=== PATIENT | male | born 1970 | race Caucasian/White ===

== ENCOUNTER → 2018-05-27 | Outpatient (CLI) | payer OTHER ==
--- NOTE | 2018-06-04 13:14 | PCVCIMAG ---
APPROVED REPORT Patient Location: Echo lab Room #: Stress Nurse: Linette Ramirez RN Treadmill Stress Test Indications- chest pain, dyspnea, HTN, DM The patient exercised according to the [facility] protocol for 9:32 mins; achieving a work level of 11.8 METS. The resting heart rate of 69 bpm christopher to a maximum heart rate of 139 bpm. This value represent 81% of the maximal, age-predicted heart rate. The resting blood pressure of 136/80 mmHg, christopher to a maximum blood pressure of 174/86 mmHg. The exercise test was stopped due to right hip pain and fatigue. No symptoms of chest pain. Conclusion #1 patient exercised 932 [place] protocol subsegment any fatigue shortness of breath no production of chest pain or angina #2 no diagnostic EKG changes were noted no significant ectopy. #3 fair exercise tolerance with an appropriate hemodynamic response Indications and plan: Continue aggressive risk factor modification there is no indication of an ischemic response.
== END | disposition home or self-care (01) ==
LOC: PCVCIMAG 16:32
PROVIDERS: ATTEND Internal Medicine Cardiovascular Disease
DX: I10 Essential (primary) hypertension (principal); R07.9 Chest pain, unspecified
CPT/HCPCS: 93017